=== PATIENT | male | born 1960 | race Hispanic/Latino ===

== ENCOUNTER 2018-01-18 17:31 | Emergency (ER) | payer BC ==
[2018-01-18 17:55] VITALS: O2SAT 97
[2018-01-18] MEDS ORDERED: Emtricitabine-Tenofovir 200 mg-300 mg Tab PO STA ×2 (18:13→18:39)
--- NOTE | 2018-01-18 18:20 | C.PDOC ---
History Of Present Illness 57 y/o male presents to the ER for evaluation after he had sex with a new partner 2 days ago and the condom broke. Patient states that his partner told him that he is HIV+ after they had sex. He was seen at [facility] and they referred him to the ER for PEP. Time Seen by Provider: 01/18/18 18:03 Chief Complaint (Nursing): Medical Clearance History Per: Patient History/Exam Limitations: no limitations Past Medical History Reviewed: Historical Data, Nursing Documentation, Vital Signs Vital Signs: Last Vital Signs Temp 98.6 F 01/18/18 20:11 Pulse 90 01/18/18 20:11 Resp 20 01/18/18 20:11 BP 131/71 01/18/18 20:11 Pulse Ox 97 01/18/18 22:08 - Medical History PMH: Asthma, HTN Surgical History: Appendectomy Family History: States: No Known Family Hx - Social History Hx Alcohol Use: Yes Hx Substance Use: No - Immunization History Hx Tetanus Toxoid Vaccination: Yes Hx Influenza Vaccination: Yes Hx Pneumococcal Vaccination: Yes Review Of Systems Except As Marked, All Systems Reviewed And Found Negative. Constitutional: Negative for: Fever, Chills Physical Exam - Physical Exam Appears: Non-toxic, No Acute Distress Skin: Normal Color, Warm, Dry Head: Atraumatic, Normacephalic Eye(s): bilateral: Normal Inspection Nose: Normal Oral Mucosa: Moist Neck: Supple Chest: Symmetrical Neurological/Psych: Oriented x3, Normal Speech ED Course And Treatment O2 Sat by Pulse Oximetry: 97 (RA) Pulse Ox Interpretation: Normal Progress Note: Labs and UA ordered and reviewed. Patient has been treated with PEP per patient's request. Patient has been discharged and told to follow up in clinic. Disposition - Disposition Referrals: [facility] [Outside] Disposition: HOME/ ROUTINE Disposition Time: 20:07 Condition: STABLE Additional Instructions: Follow up in Clinic. Return to ED if feel worse. Prescriptions: Dolutegravir Sodium [Tivicay] 50 mg PO DAILY #3 tab Dolutegravir Sodium [Tivicay] 50 mg PO DAILY #24 tab Emtricitabine/Tenofovir (Tdf) [Truvada 200 mg-300 mg Tablet] 1 each PO DAILY #3 tablet Emtricitabine/Tenofovir (Tdf) [Truvada 200 mg-300 mg Tablet] 1 each PO DAILY # 24 tablet Instructions: Preventing HIV After Unprotected Sex or Needle-Sharing Forms: [employer] (Uzbek) - Clinical Impression Clinical Impression: HIV exposure from body fluids - PA / EX CHEF / Resident Statement MD/DO has reviewed & agrees with the documentation as recorded. - Scribe Statement The provider has reviewed the documentation as recorded by the Scribe Oscar Adamson Provider Attestation All medical record entries made by the Scribe were at my direction and personally dictated by me. I have reviewed the chart and agree that the record accurately reflects my personal performance of the history, physical exam, medical decision making, and the department course for this patient. I have also personally directed, reviewed, and agree with the discharge instructions and disposition.
[2018-01-18 18:55] LABS: URINE BILIRUBIN NEGATIVE (NEGATIVE); URINE BLOOD NEGATIVE (NEGATIVE); URINE CLARITY Clear (Clear); URINE COLOR Yellow (YELLOW); URINE GLUCOSE (UA) NORMAL (Normal); URINE LEUKOCYTE ESTERASE NEG Leu/uL (Negative); URINE PROTEIN NEGATIVE (NEGATIVE); URINE UROBILINOGEN NORMAL mg/dL (0.2-1.0)
[2018-01-18 20:29] VITALS: BP 131/71; PULSE 90; RESP 20; TEMP 98.6
[2018-01-19] MEDS ORDERED: Emtricitabine-Tenofovir 200 mg-300 mg Tab PO NR (10:00)
== END 2018-01-18 20:17 | disposition home or self-care (01) ==
LOC: C.ER 17:31
DX: Z20.6 Contact with and (suspected) exposure to human immunodeficiency virus [HIV] (principal)